=== PATIENT | male | born 1965 | race African-American/Black ===

== ENCOUNTER 2016-12-24 10:58 | Inpatient (IN) | payer MEDICARE, MEDICAID ==
[~2016-12-24] VITALS: Ht 167.6 cm; Wt 74.8 kg
[~2016-12-24 10:58] MED LIST: ARIP20TA7 GT; BENZ1TAB7 PO; CHOL500010 PO; OLAN20TA16 PO
[2016-12-24] MEDS ORDERED: METHYLPREDNISOLONE SOD SUCC 125 MG/2 ML VIAL IV STA (11:17)
[2016-12-24] MEDS ORDERED: SODIUM CHLORIDE 0.9% 1,000 ML IV ONE (11:17)
[2016-12-24] MEDS ORDERED: MAGNESIUM 2 G PREMIX 50 ML IV ONE (11:30)
[2016-12-24] MEDS ORDERED: IPRATROPIUM/ALBUTEROL 0.5-3(2.5)MG/3ML NEB HHN ONE (11:30)
[2016-12-24 11:44] LABS: BASOPHILS % 0.7 % (0.0-2.0); EOSINOPHILS % 0.9 % (0.0-5.0); HEMATOCRIT. 44.8 % (42.0-52.0); HEMOGLOBIN. 15.2 g/dL (14.0-18.0); MEAN CORPUSCULAR HEMOGLOBIN 33.9 pg (28.0-32.0); MEAN CORPUSCULAR HGB CONC 33.9 g/dL (31.0-37.0); MEAN CORPUSCULAR VOLUME 99.9 fL (80.0-94.0); MONOCYTES % 7.9 % (2.0-8.0); NEUTROPHILS % 78.5 % (40.0-76.0); PLATELET 249 x1000/uL (130-400); RED BLOOD CELL COUNT 4.49 mill/uL (4.7-6.1); RED CELL DISTRIBUTION WIDTH 14.2 % (11.6-14.6); WHITE BLOOD COUNT 10.1 x1000/uL (4.5-11.0)
[2016-12-24 12:00] LABS: ALANINE AMINOTRANSFERASE 57 IU/L (13-61); ANION GAP 14; CALCIUM 8.9 mg/dL (8.5-10.1); CARBON DIOXIDE 29 mEq/L (21-32); CHLORIDE 97 mEq/L (98-107); INDEX HEMOLYSI 1 (1-3); INDEX ICTERIC 1 (1-4); INDEX LIPEMIC 1 (1-3); NT PRO B-TYPE NATRIURETIC PEP 147 pg/mL (5-125); TROPONIN I < 0.02 ng/mL (0.00-0.04); UREA NITROGEN BLOOD 11 mg/dL (7-21); eGFR > 60 mL/min (>60)
[2016-12-24 12:03] LABS: INR 1.2; PROTHROMBIN TIME 12.9 sec
[2016-12-24 12:16] LABS: GLUCOSE URINE NEGATIVE (NEGATIVE); KETONES URINE 2+ (NEGATIVE); LEUKOCYTE ESTERASE URINE NEGATIVE (NEGATIVE); NITRITE URINE NEGATIVE (NEGATIVE); OCCULT BLOOD URINE NEGATIVE (NEGATIVE); PROTEIN URINE NEGATIVE (NEGATIVE); SPECIFIC GRAVITY URINE 1.009 (1.005-1.030); UROBILINOGEN URINE 0.2 E.U./dL (0.2-1.0)
[2016-12-24 12:17] LABS: CLARITY URINE CLEAR (CLEAR); COLOR URINE PALE YELLOW (YELLOW)
[2016-12-24] MEDS ORDERED: AZITHROMYCIN 500 MG in DEXT 5% WATER 250 ML IV SCH (12:30)
[2016-12-24] MEDS ORDERED: CEFTRIAXONE 1 G PREMIX 50 ML IV ONE (12:30)
[2016-12-24 14:45] VITALS: BP 101/73
[2016-12-24 15:15] VITALS: BP 106/73
[2016-12-24] MEDS ORDERED: LORAZEPAM 2MG/ML CPJ IV PRN (16:00)
[2016-12-24] MEDS ORDERED: GUAIFENESIN 200MG/10ML SUGAR FREE UDC PO PRN (16:00)
[2016-12-24] MEDS ORDERED: TRAMADOL 50MG TABLET PO PRN (16:00)
[2016-12-24] MEDS ORDERED: NA PHOS,M-B/NA PHOS,DI-BA ENEMA 118ML PR PRN (16:00)
[2016-12-24] MEDS ORDERED: IPRATROPIUM/ALBUTEROL 0.5-3(2.5)MG/3ML NEB INH PRN (16:00)
[2016-12-24] MEDS ORDERED: ONDANSETRON HCL 4MG/2ML VIAL IV PRN (16:00)
[2016-12-24] MEDS ORDERED: DOCUSATE SODIUM 100MG CAPSULE PO PRN (16:00)
[2016-12-24] MEDS ORDERED: NITROGLYCERIN 0.4MG TABLET SL SL PRN (16:00)
[2016-12-24] MEDS ORDERED: CLONIDINE 0.1MG TABLET PO PRN (16:00)
[2016-12-24] MEDS ORDERED: ACETAMINOPHEN 325MG TABLET PO PRN (16:00)
[2016-12-24] MEDS ORDERED: DIPHENHYDRAMINE 50MG/ML VIAL IV PRN (16:00)
[2016-12-24] MEDS ORDERED: MAGNESIUM/ALUMINUM HYDROXIDE/SIMETHICONE 30ML UDC PO PRN (16:00)
[2016-12-24] MEDS: IPRATROPIUM/ALBUTEROL 0.5-3(2.5)MG/3ML NEB HHN SCH ×3 (16:32→23:58)
[2016-12-24] MEDS: LEVOFLOXACIN 750MG PREMIX 150 ML IV SCH (17:57)
[2016-12-24] MEDS: ENOXAPARIN 40MG/0.4ML SYR SUBCUT SCH (18:02)
[2016-12-24 20:18] VITALS: BP 127/72
[2016-12-24] MEDS ORDERED: ZOLPIDEM TARTRATE 5MG TABLET PO PRN (21:00)
[2016-12-24] MEDS: GUAIFENESIN 600MG ER TABLET PO SCH (22:11)
[2016-12-24] MEDS: ASCORBIC ACID 500 MG TABLET PO SCH (22:11)
[2016-12-24] MEDS: ARIPIPRAZOLE 10MG TABLET PO SCH (23:18)
[2016-12-24] MEDS: METHYLPREDNISOLONE SOD SUCC 125 MG/2 ML VIAL IV SCH (23:18)
[2016-12-25 00:29] VITALS: BP 113/71
[2016-12-25] MEDS: IPRATROPIUM/ALBUTEROL 0.5-3(2.5)MG/3ML NEB HHN SCH ×5 (04:36→21:00)
[2016-12-25 04:43] VITALS: BP 123/74
[2016-12-25] MEDS: METHYLPREDNISOLONE SOD SUCC 125 MG/2 ML VIAL IV SCH (06:46)
[2016-12-25] MEDS: GUAIFENESIN 600MG ER TABLET PO SCH ×2 (09:21→21:03)
[2016-12-25] MEDS: ASCORBIC ACID 500 MG TABLET PO SCH ×2 (09:21→21:03)
[2016-12-25] MEDS: ZINC SULFATE 220 MG ( 50 ) CAPSULE PO SCH (09:22)
[2016-12-25] MEDS: ARIPIPRAZOLE 10MG TABLET PO SCH (09:22)
[2016-12-25] MEDS: PANTOPRAZOLE SODIUM 40 MG/VIAL IV SCH (09:23)
[2016-12-25] MEDS: OLANZAPINE 10MG TABLET PO SCH (09:31)
[2016-12-25 12:00] VITALS: BP 92/56
[2016-12-25 14:17] LABS: *AMPHETAMINES SCREEN URINE NEGATIVE (NEGATIVE); *BARBITURATES SCREEN URINE NEGATIVE (NEGATIVE); *BENZODIAZEPINES SCREEN URINE NEGATIVE (NEGATIVE); *COCAINE SCREEN URINE NEGATIVE (NEGATIVE); CANNABINOID URINE SCREEN NEGATIVE (NEGATIVE); ECSTASY MDMA SCREEN URINE NEGATIVE (NEGATIVE); METHADONE URINE SCREEN NEGATIVE (NEGATIVE); OPIATES URINE SCREEN NEGATIVE (NEGATIVE); PHENCYCLIDINE URINE SCREEN NEGATIVE (NEGATIVE)
[2016-12-25] MEDS: METHYLPREDNISOLONE SOD SUCC 40 MG/ML VIAL IV SCH ×2 (15:30→21:03)
[2016-12-25] MEDS: BUDESONIDE 0.5MG/2ML NEB HHN SCH ×2 (15:47→21:14)
[2016-12-25 16:00] VITALS: BP 117/73
[2016-12-25] MEDS: ENOXAPARIN 40MG/0.4ML SYR SUBCUT SCH (18:48)
[2016-12-25 20:15] VITALS: BP 84/47
[2016-12-25] MEDS: BENZTROPINE MESYLATE 1MG TABLET PO SCH (21:03)
[2016-12-25 23:58] VITALS: BP 88/48
[2016-12-26] MEDS: IPRATROPIUM/ALBUTEROL 0.5-3(2.5)MG/3ML NEB HHN SCH ×6 (00:45→21:27)
[2016-12-26] MEDS: METHYLPREDNISOLONE SOD SUCC 40 MG/ML VIAL IV SCH ×3 (05:12→21:18)
[2016-12-26 05:46] VITALS: BP 111/81
[2016-12-26] MEDS: BUDESONIDE 0.5MG/2ML NEB HHN SCH ×2 (07:57→21:27)
[2016-12-26 08:00] VITALS: BP 113/71
[2016-12-26] MEDS: PANTOPRAZOLE SODIUM 40 MG/VIAL IV SCH (09:50)
[2016-12-26] MEDS: ZINC SULFATE 220 MG ( 50 ) CAPSULE PO SCH (09:51)
[2016-12-26] MEDS: ARIPIPRAZOLE 10MG TABLET PO SCH (09:52)
[2016-12-26] MEDS: OLANZAPINE 10MG TABLET PO SCH (09:52)
[2016-12-26] MEDS: ASCORBIC ACID 500 MG TABLET PO SCH ×2 (10:00→21:18)
[2016-12-26] MEDS: GUAIFENESIN 600MG ER TABLET PO SCH ×2 (10:32→21:18)
[2016-12-26 12:00] VITALS: BP 117/74
[2016-12-26 16:37] VITALS: BP 107/68
[2016-12-26] MEDS: ENOXAPARIN 40MG/0.4ML SYR SUBCUT SCH (19:22)
[2016-12-26] MEDS: LEVOFLOXACIN 750MG PREMIX 150 ML IV SCH ×2 (19:23→19:24)
[2016-12-26 20:00] VITALS: BP 118/52
[2016-12-26] MEDS: BENZTROPINE MESYLATE 1MG TABLET PO SCH (21:18)
[2016-12-27] VITALS: BP 135/85
[2016-12-27] MEDS: IPRATROPIUM/ALBUTEROL 0.5-3(2.5)MG/3ML NEB HHN SCH ×5 (00:51→16:19)
[2016-12-27] MEDS: BUDESONIDE 0.5MG/2ML NEB HHN SCH ×2 (00:51→08:36)
[2016-12-27 04:00] VITALS: BP 104/67
[2016-12-27 08:00] VITALS: BP 119/79
[2016-12-27] MEDS: METHYLPREDNISOLONE SOD SUCC 40 MG/ML VIAL IV SCH (08:51)
[2016-12-27] MEDS: ASCORBIC ACID 500 MG TABLET PO SCH (08:51)
[2016-12-27] MEDS: ARIPIPRAZOLE 10MG TABLET PO SCH (08:52)
[2016-12-27] MEDS: OLANZAPINE 10MG TABLET PO SCH (08:52)
[2016-12-27] MEDS: GUAIFENESIN 600MG ER TABLET PO SCH (08:52)
[2016-12-27] MEDS: ZINC SULFATE 220 MG ( 50 ) CAPSULE PO SCH (08:52)
[2016-12-27] MEDS: FAMOTIDINE 20MG TABLET PO SCH ×2 (08:52→16:50)
[2016-12-27] MEDS ORDERED: LEVOFLOXACIN 250MG TABLET PO SCH (11:00)
[2016-12-27 11:56] VITALS: BP 119/99
[2016-12-27 12:00] VITALS: BP 123/83
[2016-12-27 16:00] VITALS: BP 118/72
[2016-12-27] MEDS: ENOXAPARIN 40MG/0.4ML SYR SUBCUT SCH (16:51)
== END 2016-12-27 17:21 | disposition home or self-care (01) | DRG 193 ==
LOC: ER 11:07 → 6EST 13:07
PROVIDERS: ADMIT Internal Medicine; ATTEND Internal Medicine
DX: J18.9 Pneumonia, unspecified organism (principal); J96.00 Acute respiratory failure, unspecified whether with hypoxia or hypercapnia; J44.0 Chronic obstructive pulmonary disease with (acute) lower respiratory infection; J44.1 Chronic obstructive pulmonary disease with (acute) exacerbation; F20.9 Schizophrenia, unspecified; F32.9 Major depressive disorder, single episode, unspecified; F17.210 Nicotine dependence, cigarettes, uncomplicated; J45.909 Unspecified asthma, uncomplicated; Z90.81 Acquired absence of spleen; Z79.899 Other long term (current) drug therapy; Z88.8 Allergy status to other drugs, medicaments and biological substances; Z71.6 Tobacco abuse counseling
CPT/HCPCS: 36415; 71010; 80053; 80305; 81003; 83036; 83880; 84484; 85025; 85610; 87040; 87804; 93005; 93306; 93970; 94640; 94664; 96365; 96367; 96375; 99285; C9113; J0456; J0696; J1650; J1956; J2920; J2930; J3475; J7030; J7040; J7050; J7060; J7620; J7626